=== PATIENT | female | born 1980 | race Caucasian/White ===

== ENCOUNTER 2024-01-01 11:37 | Emergency (ER) | payer MEDICAID ==
[~2024-01-01] VITALS: Ht 165.1 cm; Wt 705.0 kg
[2024-01-01 11:39] VITALS: O2SAT 99
[2024-01-01] MEDS ORDERED: TRAMADOL 50MG TABLET PO ONE (13:30)
[2024-01-01] MEDS: TRAMADOL 50MG TABLET PO NR (15:58)
[2024-01-01 16:22] LABS: BASOPHILS % 0.7 % (0.0-2.0); DIFFERENTIAL COMMENT 0; EOSINOPHILS % 0.4 % (0.0-5.0); HEMOGLOBIN. 9.8 g/dL (12.0-16.0); LYMPHOCYTES % 16.3 % (20.0-50.0); MEAN CORPUSCULAR HEMOGLOBIN 21.9 pg (28.0-32.0); MEAN CORPUSCULAR HGB CONC 30.7 g/dL (31.0-37.0); MEAN CORPUSCULAR VOLUME 71.2 fL (81.0-99.0); MEAN PLATELET VOLUME 8.2 fl (7.4-10.4); MONOCYTES % 4.2 % (2.0-8.0); NEUTROPHILS % 78.4 % (40.0-76.0); PLATELET 298 x1000/uL (130-400); WHITE BLOOD COUNT 7.6 x1000/uL (4.5-11.0)
[2024-01-01 16:30] LABS: CHLORIDE 108 mEq/L (98-107); POTASSIUM 3.7 mEq/L (3.5-5.1); SODIUM 137 mEq/L (136-145)
[2024-01-01 16:31] LABS: CARBON DIOXIDE 25 mEq/L (21-32)
[2024-01-01 16:32] LABS: CALCIUM 9.3 mg/dL (8.7-10.4)
[2024-01-01 16:36] LABS: CREATININE 0.7 mg/dL (0.6-1.0); GLUCOSE 85 mg/dL (70-105)
[2024-01-01 16:37] LABS: UREA NITROGEN BLOOD 10 mg/dL (9-23)
[2024-01-01 16:40] LABS: TROPONIN I HIGH SENSITIVITY < 4 ng/L (3.0-34)
[2024-01-01 18:09] VITALS: BP 113/66; PULSE 58; RESP 16; TEMP 36.55848; O2SAT 100
== END 2024-01-01 18:10 | disposition home or self-care (01) ==
LOC: ER 12:24
DX: R55 Syncope and collapse (principal); D25.9 Leiomyoma of uterus, unspecified
CPT/HCPCS: 80048; 83880; 85025; 84484; 36415; 71045; 70450; 76830; 76856; 93005; 99285; Z7610 ×4; C1893